=== PATIENT | female | born 1950 | race Caucasian/White ===

== ENCOUNTER → 2016-11-03 | Outpatient (CLI) | payer OTHER ==
[~2016-11-03] MED LIST: ASPIRIN 81MG TA81 MG PO; COREG25 MG PO; LISINOPRIL40 MG PO; MAXZIDE 50 MG-71 TAB PO; SULINDAC200 MG PO; SYNTHROID 0.1M0.1 MG PO; TRAMADOL 50MG T50 MG PO
--- NOTE | 2016-11-03 14:26 | RADIOLOGY REPORT PS360 ---
EXAM: CT LUNG LOW DOSE WO CONTRAST COMPARISON: None HISTORY: 65 year old female asymptomatic with greater than 35 pack-year smoking history ORDERING PHYSICIAN: Kameron Montejo MD PATIENT AGE: 65 years TECHNIQUE: The exam was performed on a GE Light Speed [address] scanner using 2.96 mGy CTDI. A low dose helical CT CHEST was performed on a multi-detector scanner The LDCT was performed in a facility that meets the criteria for the screening program. Data regarding this exam was submitted to ACR which is an approved registry. The order for this exam indicates that it came as a result of a lung cancer screening counseling shard decision-making visit that included all the elements required of such a visit including smoking cessation. The radiologist interpreting this exam meets the [facility] criteria for the LDCT lung cancer screening program. The exam is reported using the Lung-RADS classification scale and reported to the ACR registry. NOTE: THIS STUDY WAS PERFORMED FOR THE SPECIFIC PURPOSES OF LUNG CANCER SCREENING AND IS NOT AN ALTERNATIVE TO DIAGNOSTIC CHEST CT. RADIATION DOSE: CTDI vol(CT dose Index-volume) = 2.96mG DLP (Dose Length Product) = 122.63 mGcm FINDINGS: There are bilateral noncalcified pulmonary nodules measuring 2 to 3 mm. In addition, there is a 6 mm nodule in the right lung base medially with a central lucency and could represent a small cavitating nodule. Scattered fibrotic changes are present along with centrilobular emphysematous changes and bronchial thickening. An area of groundglass density is present involving the superior segment of the right lower lobe at 12 mm. There are coronary artery calcifications consistent with coronary artery disease. Upper abdominal images demonstrates a 6.6 x 5.2 cm mass involving the junction of the right and left hepatic lobe anteriorly. An additional 2 cm lesion involves the anterior segment of the right hepatic lobe. These findings are suspicious for malignancy. Dedicated CT of the abdomen and pelvis without and with IV contrast and with delayed hepatic imaging and oral contrast recommended. There is a left adrenal nodule also noted measuring 2.7 cm. IMPRESSION: 1. Hepatic masses suspicious for malignancy. Recommend follow-up 3 phase imaging of the liver. 2. Indeterminate 2.7 cm left adrenal nodule. Recommend follow-up without and with contrast 3. Lung rads category 3 probably benign. Consider 6 month follow-up if clinically appropriate 4. Groundglass opacity superior segment right lower lobe nonspecific and may be due to small area of pneumonia
--- NOTE | 2016-11-07 09:09 | RADIOLOGY REPORT PS360 ---
DIG MAMM-SCREEN DELVIN W/CAD CAD Screening ORDERING PHYSICIAN : Kameron Montejo MD PATIENT AGE: 65 years GENDER: Female COMPARISON: Previous mammograms 2005 have been purged INDICATION: Routine screening 65-year-old no hormones no new complaints noncontributory family history TECHNIQUE: Standard CC and MLO images were obtained. R2 CAD reviewed. FINDINGS: Scattered moderate fibroglandular elements. Mild/moderate density breast. CAD highlights no areas of concern RIGHT BREAST. On further inspection there is a small focal 5 mm low-density focus at lateral right breast seen on the cc views and less evident on MLO view I. 10 o'clock position. Nonspecific low-density area with with slight irregular margins may merely be asymmetric glandular tissue.. However Recommend CC and MLO spot views and ultrasound to further evaluate this small focus labeled a. Spot views should include the slightly more generous tissue mildly asymmetric glandular appearing tissue tissue immediate retroareolar region is labeled B LEFT BREAST: No focal areas of significant concern. IMPRESSION: . Baseline mammogram. Moderate density breast Right breast: Small 5 mm low-density focus lateral right breast, would benefit from spot views & ultrasound. BI-RADS CATEGORY: 2_Benign RECOMMENDED FOLLOWUP: 12M 12 MONTH FOLLOW-UP (A letter has been sent to the patient regarding results of the study.)
== END ==
LOC: RAD 08:25
DX: Z12.31 Encounter for screening mammogram for malignant neoplasm of breast (principal); Z87.891 Personal history of nicotine dependence; Z12.2 Encounter for screening for malignant neoplasm of respiratory organs
CPT/HCPCS: G0202; G0297

== ENCOUNTER 2016-11-25 07:46 | Day surgery (SDC) | payer OTHER ==
[~2016-11-25] VITALS: Ht 154.9 cm; Wt 49.0 kg
--- NOTE | 2016-11-25 09:22 | Operative Note ---
Endoscopy Report Date: 11/25/16 Preoperative diagnosis: Rectal bleeding, stool frequency Procedure Type of procedure: Flexible proctoscopy Indications: 66-year-old white female. Referred for colonoscopy for several month history of anemia, stool frequency, and gross rectal bleeding. This is been ongoing for about 7 months. Consent was obtained the patient was taken to same-day surgery endoscopy procedure room. She was positioned in a lateral decubitus position. Adequate intravenous sedation was achieved with anesthesia titration of propofol. Digital examination was performed which revealed circumferential fungating indurated anal mass. This was firm and consistent with carcinoma. Colonoscope was unable to be advanced through any lumen. Colonoscope was exchanged for open which was minimally advanced through the anal canal into the distal rectum where there was evidence of necrosis and friability consistent with circumferential carcinoma. It was unable to be advanced more than a few centimeters. Endoscope was withdrawn. Findings: Consistent with either advanced anal squamous carcinoma versus distal rectal carcinoma with high-grade partial obstruction. Recommendations: Contacted colorectal surgery at [facility] who is agreeable to see the patient tomorrow to initiate plan. at [phone]
[2016-11-25 10:03] VITALS: BP 173/70
== END 2016-11-25 09:50 | disposition home or self-care (01) ==
LOC: SDC 07:46
PROVIDERS: Surgery
PROC: 0DJD8ZZ Inspection of Lower Intestinal Tract, Via Natural or Artificial Opening Endoscopic (ICD-10-PCS; principal; 2016-11-25 08:30)
DX: D37.8 Neoplasm of uncertain behavior of other specified digestive organs (principal); K62.5 Hemorrhage of anus and rectum; D50.0 Iron deficiency anemia secondary to blood loss (chronic)

== ENCOUNTER → 2016-12-01 | Outpatient (CLI) | payer OTHER ==
[2016-12-01 08:10] LABS: BUN 14 mg/dL (7-18)
[2016-12-01 08:11] LABS: GFR (ESTIMATED) 72 ML/MIN (59-)
--- NOTE | 2016-12-02 10:33 | RADIOLOGY REPORT PS360 ---
MRI-ABD W/WO CLINICAL INDICATION: LIVER NODULE ON CT ORDERING PHYSICIAN: KYLE OVALLE PATIENT AGE: 66 years COMPARISON: CT scan of 11/10/2016 TECHNIQUE: Multiplanar multiecho sequences performed without and with contrast. FINDINGS: There are 2 liver lesions present which correspond to the abnormalities noted on the CT scan. A 7 x 4.4 cm mass involves the junction of the right left hepatic lobe. The mass is somewhat ill-defined hypointense on the T1-weighted images showing some peripheral hyperintensity on the T2-weighted images with central decreased T2 signal. A small amount of fluid is present along the intraaspect of the liver at this region. The mass shows some heterogeneous enhancement become somewhat more apparent on the delayed images. The enhancement pattern however does not have a typical appearance for a hemangioma. The peripheral enhancement is not as intense as one would expect for a hemangioma. This mass involves liver segment 4 and 8. There is an additional mass involving segment 7 measuring approximately 17 mm as seen on the CT scan. This lesion also shows some peripheral enhancement but not as intense as what one would expect for a hemangioma. Left adrenal nodule at 2 cm is noted showing some decrease in intensity in the out of phase images suggesting adenomatous involvement. No other significant findings are evident. IMPRESSION: 1. At least 2 liver lesions as above suspicious for neoplasm. No additional findings noted when compared to the CT scan. 2. Left adrenal nodule which may be due to an adenoma.
== END ==
LOC: RAD 07:54
PROVIDERS: Surgery
DX: D37.6 Neoplasm of uncertain behavior of liver, gallbladder and bile ducts (principal)
CPT/HCPCS: A9576

== ENCOUNTER 2017-01-06 20:51 | Inpatient (IN) | payer OTHER, MEDICARE ==
[~2017-01-06] VITALS: Ht 157.5 cm; Wt 48.6 kg
[2017-01-06 21:02] VITALS: BP 160/76
--- NOTE | 2017-01-06 21:10 | Emergency Room Report ---
History of Present Illness Time Seen by 2100 Presenting Problem in Triage Pt arrived:Walked Presenting Problem:PT C/O SHAKINESS, N/V, COUGH, AND WEAKNESS SINCE 1700 TODAY. PT ALSO STATES SHE HAS RECTAL CA AND HAS INCREASED BLEEDING FROM RECTUM. Onset of symptoms date/time:/ or onset unknown for:MEDICAL HX UNKNOWN Treatment Prior to Arrival: [employer] Provided by:LAYPERSON Sepsis Risk Assessment: Temp: 98 B/P: 160/76 MAP: 104 Pulse: 74 Resp: 20 Recent fever? N Clinical Suspician of Infection? N Mental Status: 1 - Regular (Normal Baseline) Sepsis Risk:Low Sepsis Risk Have you (or family members/close friends) recently traveled outside the [place]? N If Yes, where/when: Have you had exposure to infectious disease within the past month? N TB? Other? Specify: Source patient, RN notes reviewed, family, old records Exam Limitations no limitations Comment pt with metastatic rectal cancer with therapy to start next week and she dev cough and vomiting today with no fever - no hemoptysis Cardiac Chest Pain Chest pain indicative of cardiac No Timing/Duration this evening Severity moderate ALLERGIES Coded Allergies: Sulfa (Sulfonamide Antibiotics) (Intermediate, I-HIVES 11/10/16) penicillin V (11/10/16) Home Medications Reported Medications TRAZODONE HCL (Trazodone HCl) 50 MG PO QHS Carvedilol (Coreg 25MG) 25 MG PO QHS Lisinopril (Lisinopril 40MG) 40 MG PO QHS Levothyroxine Sodium (Synthroid 0.1MG) 0.1 MG PO DAILY Sulindac 200 MG PO DAILY History Medical History General CAD? No Angina: No MA: No Hypertension? Yes Hyperlipidemia? No CHF? No DVT? No PE? No COPD? No Asthma? No Anemia? No GERD? No Gastric ulcers? No GI Bleed? No Hernia? No Thyroid Problems? Yes Hypothyroidism? No CVA? No Seizures? No Diabetes? No Insulin Dependent: No Insulin Pump: No Home FSBS? No Renal Insuffiency? No End Stage Renal Disease? No UTI? No Stones? No BPH? No GB Disease: No Nephritic Syndrome? No Asplenia? No Hepatitis? No Sickle Cell Disease? No Arthritis? No Migraines? No Cataracts? No Glaucoma? No MRSA? No HIV? No TB? No Anxiety? No Depression? No Cancer? Yes Site: RECTAL CANCER, LIVER Immunization Hx DT/Tetanus > 10 YRS Flu NEVER Pneumonia NEVER Surgical Hx Previous Surgery?Y HYSTERECTOMY COLON RESECTION Family History Family Hx Diabetes Yes CAD Yes Hypertension Yes Hyperlipidemia Yes Cancer Yes TB Yes Social History Smoking Hx Smoker: Current Every Day Smoker Tobacco: Yes Type Cigarettes Packs/day < 1 Pack Are you/the child exposed to second-hand smoke: Yes Alcohol Alcohol: No Drugs none Review of Systems All Other Systems Reviewed and Negative Constitutional denies fever Eyes denies drainage ENT denies: ear discharge, epistaxis, throat pain. Respiratory cough, denies shortness of breath, denies wheezing Cardiovascular denies chest pain, denies palpitations, denies syncope Gastrointestinal see HPI, abdominal pain, denies diarrhea, nausea, vomiting, other Genitourinary denies: frequency, hesitancy. Musculoskeletal denies back pain, denies joint pain, denies joint swelling Skin denies rash Psychiatric/Neurological denies seizure Physical Exam Vital Signs Vital Signs Date Time Temp Pulse Resp B/P Pulse O2 O2 Flow FiO2 Ox Delivery Rate 01/06 2159 69 20 173/75 94 01/06 2102 98.0 74 20 160/76 98 - WBC >12,000 or <4,000 or 10% bands? 2 or more SIRS Criteria Met? B/P:173/75 MAP:104 Creatinine >2.0? UA output<0.5ml/kg/hr for 2 hrs? Platelet count >100,000? Lactate >2.0mmol/1? INR >1.2 or PTT > than 60 sec? Evidence of Organ Dysfunction? Provider documented clinical suspician of infection? N Sepsis Criteria Count: 1 Sepsis Risk: Low Sepsis Risk General Appearance no apparent distress Eye Exam - bilateral eye PERRL, bilateral eye EOMI Comment no icterus Ear, Nose, Throat dry mm Neck non-tender Respiratory Status No: respiratory distress. Lung Sounds bilateral: rhonchi. 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 No Results/Orders Laboratory Tests 01/06/17 2100: Lactic Acid 4.1 H 01/06/17 2100: Sodium 139, Potassium 2.8 *L, Chloride 100, Carbon Dioxide 26, BUN 14, Creatinine 1.1 H, Estimated Creat Clear 38 L, Estimated GFR (MDRD) 50 L, Glucose 112 H, Calcium 9.2, Total Bilirubin 0.3, AST 49 H, ALT 29, Alkaline Phosphatase 170 H, Total Protein 7.7, Albumin 3.5, Globulin 4.2 H, Albumin/ Globulin Ratio 0.8 L, WBC 8.2, RBC 5.42 H, Hgb 13.6, Hct 43.5, MCV 80.2 L, RDW 19.2 H, Plt Count 406, MPV 8.0, Gran % 93.3 H, Gran # 7.7, Total Counted Pending, Lymphocytes % 4.4 L, Monocytes % 1.6 L, Eosinophils % 0.6, Basophils % 0.2, Neutrophils Pending, Lymphocytes (Manual) Pending, Lymphocytes # 0.4 L, Monocytes # 0.1, Eosinophils # 0.1, Basophils # 0.0, Platelet Estimate Pending, PUBS MCHC 31.2 L, MCH 25.0 L Current Medication Orders Sig/Korin Start time Last Medication Dose Route Stop Time Status Admin Levofloxacin/Dextrose 150 ML ONCE ONE 01/06 2230 CKDr IV 01/06 2359 Potassium Chloride 40 MEQ ONCE 01/06 AC PO 01/06 223 Potassium Chloride/ 100 ML ONCE ONE 01/06 2230 AC Water IV 01/07 0029 Ondansetron HCl 4 MG ONCE ONE 01/06 2130 DC 01/06 IV 01/06 Sodium Chloride 1,000 ML .Q4H 01/06 2130 AC 01/06 IV 01/07 Sodium Chloride 10 ML PRN PRN 01/06 2130 AC IV 01/08 2120 Sodium Chloride 1,000 ML .STK-MED ONE 01/06 2123 DC IV Ondansetron HCl 4 MG 01/06 2115 CAN IV Sodium Chloride 10 ML PRN PRN 01/06 2115 AC IV 01/07 2114 Ondansetron HCl 0 .STK-MED ONE 01/06 2114 DC .ROUTE Orders Procedure Date/time Status Decision to admit 01/07 2216 Active LACTIC ACID FOLLOW UP 01/06 2155 Active CHEST(2 VIEWS-NOT PORTABLE) 01/06 2115 Active IV SALINE LOCK 01/06 2115 Active CULTURE, BLOOD 01/06 2115 Active URINALYSIS/COMPLETE 01/06 2115 Active LACTIC ACID 01/06 2115 Complete CBC WITH AUTO DIFF 01/06 2115 Active CHEM 12 PROFILE 01/06 2115 Complete DIFFERENTIAL-WBC 01/06 2100 Active XRAY/CT/US XRAY/CT/US XRAY chest XR interpretation by reviewed by me Xray Results abnormal (inc marking) Departure Departure Time of Disposition 2205 Disposition Still a Patient Clinical Impression Primary Impression: Bronchitis Secondary Impressions: Hypokalemia, Rectal cancer Condition STABLE Referrals Kameron Montejo MD (Family) discussed with dr benito ED Critical Care Critical Care No at 2226
[2017-01-06 21:31] LABS: HEMOGLOBIN 13.6 g/dL (12.2-16.2); LYMPH # 0.4 K/mm3 (0.7-4.5); LYMPH % 4.4 % (10-50.0)
[2017-01-06] MEDS ORDERED: TRAZODONE 50MG50 MG PO (21:32)
[2017-01-06 22:24] LABS: NEUTROPHILS 89 % (42-76)
[2017-01-06 23:20] VITALS: BP 164/64
[2017-01-06 23:24] VITALS: BP 161/66
[2017-01-07 04:22] VITALS: BP 137/71
--- NOTE | 2017-01-07 05:20 | RADIOLOGY REPORT PS360 ---
CHEST(2 VIEWS-NOT PORTABLE) HISTORY: COUGH, CONGESTION ORDERING PHYSICIAN: Kameron Montejo MD PATIENT AGE: 66 years COMPARISON: None available FINDINGS: The cardiomediastinal silhouette and pulmonary vascularity are within normal limits. No lobar consolidation or collapse. There is a faint nodular opacity overlying the right lung base laterally which may be due to a nipple shadow. This may be confirmed with nipple markers. There is coarsening of bronchovascular markings with hyperinflation suggesting COPD/asthma/bronchitis.7 mm nodular opacity noted in the right upper lobe overlying the second rib anteriorly and could be due to summation density or pulmonary nodule. No acute bony anomalies. IMPRESSION: 1. Suspect small airway disease 2. Nodular opacity right lower lobe which may be due to nipple shadow. Cannot exclude pulmonary nodule. Repeat exam with nipple markers may confirm. 3. Nonspecific nodular opacity right upper lobe which could be due to overlapping vessel or nodule. Follow-up recommended to confirm stability
[2017-01-07 07:06] LABS: LYMPH # 0.4 K/mm3 (0.7-4.5); LYMPH % 2.1 % (10-50.0)
[2017-01-07 07:27] LABS: HEMOGLOBIN 11.5 g/dL (12.2-16.2)
[2017-01-07 08:00] VITALS: BP 130/61
--- NOTE | 2017-01-07 08:22 | PHARMACY CLINIC NOTE ---
Patient Demographics Patient Demographics Admission date: 01/06/17 Date: 01/07/17 Time: 0821 Allergies Coded Allergies: Sulfa (Sulfonamide Antibiotics) (Intermediate, I-HIVES 11/10/16) penicillin V (11/10/16) HEIGHT- FT: 5 IN: 2.00 K.591 VTE General Information Labs: Laboratory Tests 01/07 01/06 0630 2100 Hematology Hgb (12.2 - 16.2 g/dL) 11.5 L 13.6 Hct (37.0 - 47.0 %) 37.0 43.5 Plt Count (142 - 424 K/mm3) 242 406 Disclaimer The following section includes nursing documentation that has been pulled in for pharmacy review. Patient's VTE score: 3 Patient's VTE Risk: LOW RISK Clinical trial participant? No VTE prophylaxis NQF [id number] VTE prophylaxis ordered? Yes Type of prophylaxis/treatment: GEMMA at 0821
[2017-01-07] MEDS ORDERED: LEVOTHYROXIN0.075 M1 PO (08:23)
[2017-01-07] MEDS ORDERED: AMLO5TAB PO (08:24)
[2017-01-07] MEDS ORDERED: LOPRESSOR 50 MG50 MG PO (08:31)
[2017-01-07] MEDS ORDERED: LISINOPRIL20 MG PO (08:33)
[2017-01-07] MEDS ORDERED: FEOSOL325 MG PO (08:35)
--- NOTE | 2017-01-07 08:36 | HISTORY AND PHYSICAL REPORT ---
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 ER with vomiting since dinner last PM. She developed chilling without a fever as well. She did have a cough yesterday but denies any other respiratory symptoms. Stools in the colostomy bag have been more loose. There has been no blood in the bag but she continues to pass blood from the rectum. She has seen oncology and dual treatment with radiation and chemotherapy are planned. She has an appt on 01/09/17. This AM she is feeling better. She did sleep some. Daughter is at bedside. Ms Nunes denies abdominal pain and SOB. She is not coughing. She has ongoing rectal pain and pink rectal discharge. The colostomy is functioning well without blood. She has ambulated to the bathroom. She has had a low grade fever and WBC's are elevated at 17,000 this AM. Past Medical History: Medical History: CAD? No Angina: No NE: No Hypertension? Yes Hyperlipidemia? Yes CHF? No DVT? No PE? No COPD? Yes Asthma? No Anemia? No GERD? No Gastric ulcers? No GI Bleed? No Hernia? No Thyroid Problems? Yes Hypothyroidism? Yes CVA? No Seizures? No Diabetes? No Insulin Dependent: No Insulin Pump: No Home FSBS? No Renal Insuffiency? No UTI? No Stones? No BPH? No GB Disease: No Nephritic Syndrome? No Asplenia? No Hepatitis? No Sickle Cell Disease? No Arthritis? No Migraines? No Cataracts? No Glaucoma? No MRSA? No HIV? No TB? No Anxiety? No Depression? No Cancer? Yes Site: RECTAL CANCER, LIVER Surgical history: Previous Surgery?Y HYSTERECTOMY ; colostomy created pretreatment ( with radiation and chemo for rectal cancer) Medications: Reported Medications TRAZODONE HCL (Trazodone HCl) 50-100 MG PO QHS Ferrous Sulfate (Feosol) 325 MG PO TID Levothyroxine Sodium (Levothyroxine 0.075MG) 0.075 MG PO DAILY #30 Amlodipine Besylate (Amlodipine) 5 MG PO DAILY #30 Metoprolol Tartrate (Lopressor) 50 MG PO BID #60 Lisinopril 20 MG PO DAILY #30 Discontinued Reported Medications Sulindac 200 MG PO DAILY Allergies: Coded Allergies: Sulfa (Sulfonamide Antibiotics) (Intermediate, I-HIVES 11/10/16) penicillin V (11/10/16) Family History: Family history: Postive for: CAD, DM, HTN, cancer. Social History: Smoking Hx Tobacco: Yes Smoker: Current Every Day Smoker Type: Cigarettes Packs/day: < 1 Pack Are you exposed to second hand Yes Alcohol: Alcohol: No Hx of Drug Use: Drug Use? No Review of Systems: ENT No: mouth pain, sore throat. Cardiovascular No: chest pain, edema, palpitations. Respiratory Positive for: non-productive (minimal). No: pneumonia, productive cough (sputum ), wheezing. GI Positive for: diarrhea, nausea, rectal pain, vomitting. No: abdominal pain, constipation, hematemeis, hematochezia, melena. (female) No: frequency, hematuria. Neurological Positive for: headache. No: confusion, dizziness, seizure, syncope. Musculoskeletal No: extremity pain, joint pain. Physical Exam: Vital signs: 1ST Vital Signs Result Date Time Pulse Ox 98 01/06 2102 B/P 160/76 01/06 2102 Temp 98.0 01/06 2102 Pulse 74 01/06 2102 Resp 20 01/06 2102 O2 Delivery ROOM AIR 01/06 2320 Exam: General appearance: alert, no acute distress Eyes: anicteric Neck: non-tender, full range of motion, supple Cardiovascular: regular rate & rhythm Respiratory: clear to auscultation (bilat anterior and posterior) ABD: non-distended, soft, bowel sounds present, colostomy, inflammed rectal masses Extremities: no peripheral edema, no calf tenderness Musculoskeletal: movesw all extremities Neuro: alert, oriented, speech clear Lab data: Labs: Laboratory Tests 01/07/17 0630: Sodium 135 L, Potassium 4.7, Chloride 101, Carbon Dioxide 25, BUN 11, Creatinine 1.0, Estimated Creat Clear 42 L, Estimated GFR (MDRD) 55 L, Glucose 114 H, Calcium 8.4 L, WBC 17.4 H, RBC 4.60, Hgb 11.5 L, Hct 37.0, MCV 80.4 L, RDW 19.1 H, Plt Count 242, MPV 8.1, Gran % 94.5 H, Gran # 16.4 H, Lymphocytes % 2.1 L, Monocytes % 3.1, Eosinophils % 0.1, Basophils % 0.1, Lymphocytes # 0.4 L, Monocytes # 0.5, Eosinophils # 0.0, Basophils # 0.0, PUBS MCHC 31.0 L, MCH 25.0 L 01/06/17 2100: Lactic Acid 4.1 H 01/06/17 2100: Sodium 139, Potassium 2.8 *L, Chloride 100, Carbon Dioxide 26, BUN 14, Creatinine 1.1 H, Estimated Creat Clear 38 L, Estimated GFR (MDRD) 50 L, Glucose 112 H, Calcium 9.2, Total Bilirubin 0.3, AST 49 H, ALT 29, Alkaline Phosphatase 170 H, Total Protein 7.7, Albumin 3.5, Globulin 4.2 H, Albumin/ Globulin Ratio 0.8 L, WBC 8.2, RBC 5.42 H, Hgb 13.6, Hct 43.5, MCV 80.2 L, RDW 19.2 H, Plt Count 406, MPV 8.0, Gran % 93.3 H, Gran # 7.7, Total Counted 100, Lymphocytes % 4.4 L, Monocytes % 1.6 L, Eosinophils % 0.6, Basophils % 0.2, Neutrophils 89 H, Lymphocytes (Manual) 9 L, Lymphocytes # 0.4 L, Monocytes # 0.1, Eosinophils # 0.1, Eosinophils # (Manual) 1, Basophils # 0.0, Basophils # (Manual) 1, Platelet Estimate NORMAL, Hypochromasia 1+, Poikilocytosis 1+, Anisocytosis 1+, PUBS MCHC 31.2 L, MCH 25.0 L Microbiology 01/06 2100 BLOOD: Anaerobic Blood Culture - RECD 01/06 2100 BLOOD: Aerobic Blood Culture - RECD 01/06 2100 BLOOD: Anaerobic Blood Culture - RECD 01/06 2100 BLOOD: Aerobic Blood Culture - RECD Radiology results: Results: 01/06/17 CXR IMPRESSION: 1. Suspect small airway disease 2. Nodular opacity right lower lobe which may be due to nipple shadow. Cannot exclude pulmonary nodule. Repeat exam with nipple markers may confirm. 3. Nonspecific nodular opacity right upper lobe which could be due to overlapping vessel or nodule. Follow-up recommended to confirm stability Diagnosis(es): 1. Rectal adenocarcinoma metastatic to liver 2. Hypokalemia 3. Bronchitis 4. Leukocytosis Plan: continue with Levaquin and IVF; repeat labs and CXR in AM; Blood cultures are pending (Tiana Rangel APRN) Diagnosis(es): 1. Rectal adenocarcinoma metastatic to liver 2. Hypokalemia 3. Bronchitis 4. Leukocytosis Plan: Patient seen and agree with above note. (Kameron Montejo MD) at 0858 at 0909
[2017-01-07 09:06] VITALS: BP 130/61
[2017-01-07 10:07] LABS: URINE BILIRUBIN - DIPSTICK NEGATIVE (NEG); URINE BLOOD 3+ (NEG)
--- NOTE | 2017-01-07 11:12 | ACUTE CARE PROGRESS NOTE (QUA) ---
Progress Notes Subjective Date 01/07/17 Time 1109 Objective Reviewed: Multiple blood cultures prelim positive for E. coli. Assessment/Plan Problem List 1. Rectal adenocarcinoma metastatic to liver 2. Hypokalemia 3. Bronchitis 4. Leukocytosis This inpt stay is expected to cross 2 MNs from start of care Yes Comments: Rocephin added empirically to Levaquin due to preliminary blood culture results. at 1111
[2017-01-07 16:00] VITALS: BP 177/61
[2017-01-07 19:27] VITALS: BP 139/84
[2017-01-07 21:09] VITALS: BP 139/84
[2017-01-08 04:13] VITALS: BP 138/61
[2017-01-08 08:00] VITALS: BP 186/73
--- NOTE | 2017-01-08 08:17 | ACUTE CARE PROGRESS NOTE (QUA) ---
Progress Notes Subjective Date 01/08/17 Time 0745 Note Pt resting quietly in bed with daughter at bedside. Pt reports no pain or SOB this am, continues with chronic cough. Pt tolerating diet well, however, she reports little appetite, notes BM x 1 early this morning. Objective Findings Last VS-Temp:98.1 B/P:138/61 Pulse:53 Resp:18 SaO2:95 ROOM AIR Last weight lbs:107 oz:2 K.591 Method:Bed Scales 01/06/17 Blood cultures: preliminary result: E.coli Exam General appearance: alert, awake, no acute distress Cardiovascular: regular rate & rhythm, normal peripheral pulses Respiratory: good air movement with right basilar wheeze ABD: non-distended, no rebound, soft, no tenderness, no guarding, no organomegaly, no palpable mass, bowel sounds present, colostomy bag in place LLQ Extremities: full range of motion, no peripheral edema, warm, no calf tenderness Neuro: alert, oriented, speech clear, no focal deficit Reviewed: medications, vital signs, lab results, radiology report, nursing notes Assessment/Plan Problem List 1. Rectal adenocarcinoma metastatic to liver 2. Hypokalemia 3. Bronchitis 4. Leukocytosis 5. E coli bacteremia Status: Acute Patient condition Improving Plan: CBC and CXR pending. CMP has improved. Will continue current care. Further per Dr. Montejo. This inpt stay is expected to cross 2 MNs from start of care Yes (SHANNON ALEJO APRN) Assessment/Plan Problem List 1. Rectal adenocarcinoma metastatic to liver 2. Hypokalemia 3. Bronchitis 4. Leukocytosis 5. E coli bacteremia Status: Acute Comments: Patient seen and agree with above note, awaiting cultures. (Kameron Montejo MD) at 0816 at 0906
[2017-01-08 08:34] LABS: HEMOGLOBIN 10.9 g/dL (12.2-16.2); LYMPH % 10.4 % (10-50.0)
[2017-01-08 08:45] VITALS: BP 138/61
--- NOTE | 2017-01-08 09:23 | RADIOLOGY REPORT PS360 ---
CHEST(2 VIEWS-NOT PORTABLE) HISTORY: leukocytosis ORDERING PHYSICIAN: Kameron Montejo MD PATIENT AGE: 66 years COMPARISON: 01/06/2017 FINDINGS: The cardiomediastinal silhouette and pulmonary vascularity are within normal limits. There is coarsening of bronchovascular markings as before consistent with COPD. No lobar consolidation or collapse and no significant change compared to the previous exam. Minimal blunting of the right CP angle as before. No acute bony abnormalities. IMPRESSION: COPD, no change with no acute finding
[2017-01-08 16:10] VITALS: BP 138/70
[2017-01-08 19:22] VITALS: BP 178/72
[2017-01-08 21:00] VITALS: BP 178/72
[2017-01-08 22:38] LABS: STOOL OCCULT BLOOD POSITIVE (NEG)
[2017-01-09 04:25] VITALS: BP 152/80
[2017-01-09 07:48] VITALS: BP 155/73
--- NOTE | 2017-01-09 08:16 | ACUTE CARE PROGRESS NOTE (QUA) ---
Progress Notes Subjective Date 01/09/17 Time 0745 Note Pt sitting up in bed watching tv with daughter at bedside. She reports feeling much better this morning. She denies any pain or SOB, notes her cough has improved. She tolerated breakfast well and has been up ad lawrence in her room without difficultly. She is voiding normally. She reports a stool sample was obtained after she noticed blood in her colostomy bag yesterday evening. Objective Findings Last VS-Temp:98.5 B/P:155/73 Pulse:59 Resp:20 SaO2:97 ROOM AIR Last weight lbs:107 oz:2 K.591 Method:Bed Scales 01/08/17 CXR: 1. COPD, no change with no acute finding. 01/06/17 Blood cultures: Final Result: E.coli - sensitive to Levaquin and Rocephin. 01/08/17 Stool Occult Blood: Positive. Exam General appearance: alert, awake, no acute distress Cardiovascular: regular rate & rhythm, normal peripheral pulses Respiratory: CTAB A&P ABD: non-distended, no rebound, soft, no tenderness, no guarding, no organomegaly, no palpable mass, bowel sounds present, LLQ colostomy Extremities: moves all, no peripheral edema, bilateral GEMMA hose in place Neuro: alert, oriented, speech clear, no focal deficit Reviewed: medications, vital signs, lab results, radiology report, nursing notes Assessment/Plan Problem List 1. Rectal adenocarcinoma metastatic to liver 2. Hypokalemia 3. Bronchitis 4. Leukocytosis 5. E coli bacteremia Status: Acute Patient condition Improving Plan: Will continue current care. Further per Dr. Montejo. This inpt stay is expected to cross 2 MNs from start of care Yes (SHANNON ALEJO APRN) Assessment/Plan Problem List 1. Rectal adenocarcinoma metastatic to liver 2. Hypokalemia 3. Bronchitis 4. Leukocytosis 5. E coli bacteremia Status: Acute 6. GI bleeding Comments: Overall patient is improving, no abd pain this AM, will monitor ostomy output for more blood, change from IV to PO Levaquin and saline lock IVF. (Kameron Montejo MD) at 0815 at 0848
[2017-01-09 09:00] VITALS: BP 155/73
[2017-01-09 16:16] VITALS: BP 156/72
[2017-01-09 19:44] VITALS: BP 204/76
[2017-01-09 20:30] VITALS: BP 204/76
[2017-01-10 04:16] VITALS: BP 123/58
[2017-01-10 07:27] LABS: LYMPH # 1.5 K/mm3 (0.7-4.5)
[2017-01-10 08:24] LABS: HEMOGLOBIN 12.7 g/dL (12.2-16.2)
[2017-01-10 08:30] VITALS: BP 188/76
--- NOTE | 2017-01-10 08:42 | ACUTE CARE PROGRESS NOTE (QUA) ---
Progress Notes Subjective Date 01/10/17 Time 0837 Note Patient feels well this morning, would like to go home. Objective Findings Laboratory Tests 01/10/17 0610: Sodium 137, Potassium 3.9, Chloride 99, Carbon Dioxide 28, BUN 12, Creatinine 0.8, Estimated Creat Clear 53, Estimated GFR (MDRD) 72, Glucose 88, Calcium 9.4, WBC 8.5, RBC 5.07, Hgb 12.7, Hct 39.7, MCV 78.4 L, RDW 18.8 H, Plt Count 259, MPV 8.2, Gran % 75.6, Gran # 6.4, Lymphocytes % 18.0, Monocytes % 3.7, Eosinophils % 2.3, Basophils % 0.6, Lymphocytes # 1.5, Monocytes # 0.3, Eosinophils # 0.2, Basophils # 0.1, PUBS MCHC 32.0, MCH 25.1 L Vital Signs Date Time Temp Pulse Resp B/P Pulse O2 O2 Flow FiO2 Ox Delivery Rate 01/10 0416 98.3 47 16 123/58 95 ROOM AIR 01/09 2030 97.6 52 16 204/76 97 01/09 1944 97.6 52 16 204/76 97 ROOM AIR 01/09 1616 98.2 50 16 156/72 98 ROOM AIR 01/09 0900 98.5 59 20 155/73 97 Last VS-Temp:98.3 B/P:123/58 Pulse:47 Resp:16 SaO2:95 ROOM AIR Last weight lbs:107 oz:2 K.591 Method:Bed Scales Exam General appearance: alert, awake, no acute distress Cardiovascular: regular rate & rhythm Respiratory: clear to auscultation ABD: normal bowel sounds, soft, no tenderness, no blood in ostomy bag Extremities: no peripheral edema Assessment/Plan Problem List 1. E coli bacteremia Status: Acute 2. Rectal adenocarcinoma metastatic to liver Status: Chronic 3. Hypokalemia Status: Resolved 4. Bronchitis Status: Resolved 5. Leukocytosis Status: Resolved 6. GI bleeding Status: Chronic This inpt stay is expected to cross 2 MNs from start of care Yes Comments: Patient has improved dramatically. Bacteremia was likely caused from a UTI, even though urine culture was normal. Sample was collected after antibiotics had been given. OK to discharge today on Levaquin and Ceftin. Patient to f/u in office in 6 days. at 0842
[2017-01-10] MEDS ORDERED: CEFUROXIME AXE500 MG PO (08:45)
[2017-01-10] MEDS ORDERED: LEVOFLOXACIN 5500 MG PO (08:45)
[2017-01-10] MEDS ORDERED: ZOFRAN 8MG TABLE8 MG PO (08:46)
[2017-01-10 10:04] VITALS: BP 188/76
--- NOTE | 2017-01-10 12:41 | DISCHARGE SUMMARY STANDARD ---
Discharge Summary (FCA2) Date of admission: 01/06/17 Date of discharge: 01/10/17 Problem List: 1. E coli bacteremia 2. Rectal adenocarcinoma metastatic to liver 3. Hypokalemia 4. Bronchitis 5. Leukocytosis 6. GI bleeding History of present illness: History of Present Illness: Ms Nunes is a 66 year old female with a history of recently diagnosed metastatic adenocarcinoma of the rectum with pretreatment colostomy creation, hypothyroidism, HTN, and tobacco usage. She presented to [facility] ER with vomiting since dinner the PM of admission. She developed chilling without a fever as well. She did have a cough but denied any other respiratory symptoms. Stools in the colostomy bag were more loose. There has been no blood in the bag but she continued to pass blood from the rectum. She had seen oncology and dual treatment with radiation and chemotherapy were planned with an appt on 01/09/17. This AM she is feeling better. She did sleep some. Daughter is at bedside. Ms Nunes denies abdominal pain and SOB. She is not coughing. She has ongoing rectal pain and pink rectal discharge. The colostomy is functioning well without blood. She has ambulated to the bathroom. She has had a low grade fever and WBC's are elevated at 17,000 this AM. Exam on admission: Vital signs: 1ST Vital Signs Result Date Time Pulse Ox 98 01/06 2102 B/P 160/76 01/06 2102 Temp 98.0 01/06 2102 Pulse 74 01/06 2102 Resp 20 01/06 2102 O2 Delivery ROOM AIR 01/06 2320 Exam: General appearance: alert, no acute distress Eyes: anicteric Neck: non-tender, full range of motion, supple Cardiovascular: regular rate & rhythm Respiratory: clear to auscultation (bilat anterior and posterior) ABD: non-distended, soft, bowel sounds present, colostomy, inflammed rectal masses Extremities: no peripheral edema, no calf tenderness Musculoskeletal: movesw all extremities Neuro: alert, oriented, speech clear Hospital Course: Am after admission she was feeling better. She received IVF and IV Levaquin. With positive blood cultures Rocephin was added. She had minimal cough. She had ongoing rectal pain and pink rectal discharge. The colostomy functioned well with some noted blood. She ambulated ad lawrence in her room. WBC's returned to normal. She did begin to eat better and improved dramatically. She denied abdominal pain. Positive blood cultures with E coli were sensitive to both ABX. Bacteremia was felt to be due to UTI even though Urine culture was negative . Patient had already received ABX prior to obtaining the UA. On 01/10/17 she was discharged to home. Laboratory data this visit: 01/07/17 0630: Sodium 135 L, Potassium 4.7, Chloride 101, Carbon Dioxide 25, BUN 11, Creatinine 1.0, Estimated Creat Clear 42 L, Estimated GFR (MDRD) 55 L, Glucose 114 H, Calcium 8.4 L, WBC 17.4 H, RBC 4.60, Hgb 11.5 L, Hct 37.0, MCV 80.4 L, RDW 19.1 H, Plt Count 242, MPV 8.1, Gran % 94.5 H, Gran # 16.4 H, Lymphocytes % 2.1 L, Monocytes % 3.1, Eosinophils % 0.1, Basophils % 0.1, Lymphocytes # 0.4 L, Monocytes # 0.5, Eosinophils # 0.0, Basophils # 0.0, PUBS MCHC 31.0 L, MCH 25.0 L 01/06/17 2100: Lactic Acid 4.1 H 01/06/17 2100: Sodium 139, Potassium 2.8 *L, Chloride 100, Carbon Dioxide 26, BUN 14, Creatinine 1.1 H, Estimated Creat Clear 38 L, Estimated GFR (MDRD) 50 L, Glucose 112 H, Calcium 9.2, Total Bilirubin 0.3, AST 49 H, ALT 29, Alkaline Phosphatase 170 H, Total Protein 7.7, Albumin 3.5, Globulin 4.2 H, Albumin/ Globulin Ratio 0.8 L, WBC 8.2, RBC 5.42 H, Hgb 13.6, Hct 43.5, MCV 80.2 L, RDW 19.2 H, Plt Count 406, MPV 8.0, Gran % 93.3 H, Gran # 7.7, Total Counted 100, Lymphocytes % 4.4 L, Monocytes % 1.6 L, Eosinophils % 0.6, Basophils % 0.2, Neutrophils 89 H, Lymphocytes (Manual) 9 L, Lymphocytes # 0.4 L, Monocytes # 0.1, Eosinophils # 0.1, Eosinophils # (Manual) 1, Basophils # 0.0, Basophils # (Manual) 1, Platelet Estimate NORMAL, Hypochromasia 1+, Poikilocytosis 1+, Anisocytosis 1+, PUBS MCHC 31.2 L, MCH 25.0 L 01/06/17 Blood cultures: Final Result: E.coli - sensitive to Levaquin and Rocephin. 01/08/17 Stool Occult Blood: Positive. 01/10/17 0610: Sodium 137, Potassium 3.9, Chloride 99, Carbon Dioxide 28, BUN 12, Creatinine 0.8, Estimated Creat Clear 53, Estimated GFR (MDRD) 72, Glucose 88, Calcium 9.4, WBC 8.5, RBC 5.07, Hgb 12.7, Hct 39.7, MCV 78.4 L, RDW 18.8 H, Plt Count 259, MPV 8.2, Gran % 75.6, Gran # 6.4, Lymphocytes % 18.0, Monocytes % 3.7, Eosinophils % 2.3, Basophils % 0.6, Lymphocytes # 1.5, Monocytes # 0.3, Eosinophils # 0.2, Basophils # 0.1, PUBS MCHC 32.0, MCH 25.1 L Vital Signs Imagin01/06/17 CXR IMPRESSION: 1. Suspect small airway disease 2. Nodular opacity right lower lobe which may be due to nipple shadow. Cannot exclude pulmonary nodule. Repeat exam with nipple markers may confirm. 3. Nonspecific nodular opacity right upper lobe which could be due to overlapping vessel or nodule. Follow-up recommended to confirm stability CXR 01/08/17 IMPRESSION: COPD, no change with no acute finding Discharge medications: Continue taking these medications: TRAZODONE HCL (Trazodone HCl) 50 MG TABLET 50-100 MILLIGRAM ORAL AT BEDTIME NIGHTLY Levothyroxine Sodium (Levothyroxine 0.075MG) 75 MCG TABLET 0.075 MILLIGRAM ORAL DAILY Qty = 30 Amlodipine Besylate (Amlodipine) 5 MG TABLET 5 MILLIGRAM ORAL DAILY Qty = 30 Metoprolol Tartrate (Lopressor) 50 MG TABLET 50 MILLIGRAM ORAL TWICE A DAY Qty = 60 Lisinopril (Lisinopril) 20 MG TABLET 20 MILLIGRAM ORAL DAILY Qty = 30 Ferrous Sulfate (Feosol) 325 MG TABLET 325 MILLIGRAM ORAL THREE TIMES A DAY Start taking the following new medications: LEVOFLOXACIN (Levofloxacin) 500 MG TABLET 500 MILLIGRAM ORAL AT BEDTIME NIGHTLY Qty = 7 No Refills Cefuroxime Axetil (Cefuroxime) 500 MG TABLET 500 MILLIGRAM ORAL TWICE A DAY Qty = 14 No Refills Ondansetron Hcl (Zofran 8MG Tab) 8 MG TABLET 8 MILLIGRAM ORAL EVERY 8 HOURS NEEDED as needed for N/V Qty = 9 Refills = 2 Disposition: 01/10/17 patient was discharged to home in stable and satisfactory condition. Meds as per reconciliation sheet and to include Ceftin and Levaquin. She was to continue with the same diet and activity level. F/U with Dr. Montejo in 6 days. at 1241
--- OUTSIDE RECORDS SUMMARY | 2017-02-13 09:36 | External Medical Summary Rpt ---
Author Author , WAYNE BLACK Address Unknown Phone [email or web address] [facility] Immunization Name Date Rout CVX Reac Dose Comm Prov Is Faci e tion ent ider Refu lity Give sed n Infl 12-0 Intr 135 0.5 Hist [facility] No [facility] uenz 6-20 amus mL oric ART5 ART5 a, 16 cula al 91 91 High r Info rmat Dose ion - Sour ce Unsp ecif ied PPV2 06-1 Intr 33 0.5 Hist [facility] No [facility] 3 0-20 amus mL oric ART5 ART5 16 cula al 91 91 r Info rmat ion - Sour ce Unsp ecif ied Tdap 04-2 Intr 115 0.5 Hist [facility] No [facility] , 7-20 amus mL oric ART5 ART5 Adso 16 cula al 91 91 rbed r Info rmat ion - Sour ce Unsp ecif ied
--- OUTSIDE RECORDS SUMMARY | 2017-02-13 09:36 | External Medical Summary Rpt ---
Author Author , JONAH Organization JONAH Address Unknown Phone [email or web address] Purpose Continuity of Care Document - 11-10-2016 through 2016 Problems Code Diagnosis DOS Provider Status C20 MALIGNANT NEOPLASM OF RECTUM E87.6 HYPOKALEMIA J40 BRONCHITIS, NOT SPECIFIED ACUTE OR CHRONIC R53.83 OTHER FATIGUE Results Labs Lab Lab Date Result Refere Interp Status Commen Order Detail nces retati t Range on Bacteria identified in Urine by Culture (01-30-2017 15:07) Bacteri MODERAT complet a 017 E ed identif 15:07 AMOUNT ied in OF Urine YEAST by ISOLATE Culture D. PLEASE CONTACT LAB IF ID Bacteri REQUIRE complet a 017 D. LAB ed identif 15:07 WILL ied in HOLD Urine YEAST by FOR 5 Culture DAYS. Bacteri Yeast complet a 017 ed identif 15:07 ied in Urine by Culture Hemoglobin.gastrointestinal [Presence] in Stool (01-08-2017 22:23) Hemoglo POSITIV NEG complet bin.gas 017 E ed trointe 22:23 stinal [Presen ce] in Stool --1st specime n Differential panel, method unspecified - (01-06-2017 21:00) Anisocy 1+ complet tosis 017 ed [Presen 21:00 ce] in Blood Hypochr 1+ complet omia 017 ed [Presen 21:00 ce] in Blood LYMPH 9 % 10% - Low complet 017 50% ed 21:00 Platele NORMAL complet ts 017 ed [Presen 21:00 ce] in Blood by Light microsc opy [place] 1+ complet cytosis 017 ed 21:00 [Presen ce] in Blood by Light microsc opy CEA SerPl-mCnc (12-12-2016 14:10) CEA 245.4 complet SerPl-m 017 ng/mL ed Cnc 14:10
--- OUTSIDE RECORDS SUMMARY | 2017-02-13 09:36 | External Medical Summary Rpt ---
Author Author , JONAH Organization JONAH Address Unknown Phone [email or web address] Purpose Continuity of Care Document - 11-10-2016 [...]
--- OUTSIDE RECORDS SUMMARY | 2017-02-13 09:36 | External Medical Summary Rpt ---
Author Author [employer] Organization [employer] Address Unknown Phone Unavailable Purpose Continuity of Care Document - through 2016
--- OUTSIDE RECORDS SUMMARY | 2017-02-13 09:36 | External Medical Summary Rpt ---
Author Author , WAYNE BLACK Address Unknown Phone [email or web address] Immunization Name Date Rout CVX Reac Dose [...]
--- OUTSIDE RECORDS SUMMARY | 2017-02-13 09:37 | External Medical Summary Rpt ---
Author Author [facility] Connolly, [employer] [facility] [employer] Address Unknown Phone Unavailable Results Bacteria identified in Urine by Culture Observa Value Referen Units Interpr Notes Date tion ce etation Range Bacteri MODERAT No No No No Sep 22 a E informa informa informa informa 2017 identif AMOUNT tion in tion in tion in tion in 3:07 PM ied in OF source source source source Urine YEAST data data data data by ISOLATE Culture D. PLEASE CONTACT LAB IF ID Bacteri REQUIRE No No No No Sep 22 a D. LAB informa informa informa informa 2017 identif WILL tion in tion in tion in tion in 3:07 PM ied in HOLD source source source source Urine YEAST data data data data by FOR 5 Culture DAYS. Bacteri Yeast No No No No Sep 22 a informa informa informa informa 2016 identif tion in tion in tion in tion in 3:07 PM ied in source source source source Urine data data data data by Culture Comprehensive metabolic 2000 panel in Serum or Plasma Observa Value Referen Units Interpr Notes Date tion ce etation Range Albumin/G 1.1 - 1.8 No Low No Sep 22 lobulin informati informati 2017 3:07 [Mass on in on in PM ratio] in source source Serum or data data Plasma Albumin 3.4 - 5.0 gm/dL Normal No Sep 22 [Mass/vol informati 2017 3:07 ume] in on in PM Serum or source Plasma data Alkaline 46 - 116 U/L High No Sep 22 phosphata informati 2017 3:07 se on in PM [Enzymati source c data activity/ volume] in Serum or Plasma Bilirubin 0.2 - 1.0 mg/dL Normal No Sep 22 .total informati 2017 3:07 [Mass/vol on in PM ume] in source Serum or data Plasma Urea 7 - 18 mg/dL Normal No Sep 22 nitrogen informati 2017 3:07 [Mass/vol on in PM ume] in source Serum or data Plasma Calcium 8.5 - mg/dL Normal No Sep 22 [Mass/vol 10.1 informati 2017 3:07 ume] in on in PM Serum or source Plasma data Chloride 98 - 107 mmoL/L Normal No Sep 22 [Moles/vo informati 2016 3:07 lume] in on in PM Serum or source Plasma data Carbon 21.0 - mmoL/L Normal No Sep 22 dioxide, 32.0 informati 2016 3:07 total on in PM [Moles/vo source lume] in data Serum or Plasma Creatinin 0.55 - mg/dL Normal No Sep 22 e 1.02 informati 2017 3:07 [Mass/vol on in PM ume] in source Serum or data Plasma Estimated 59- ML/MIN No REFERENCE Sep 22 informati RANGE: 2017 3:07 glomerula on in >60 PM r source ML/MIN/1. filtratio data 73 SQUARE n rate METERSIf (GF this patient is -A merican, then multiply theresult by 1.210. Globulin 1.3 - 3.2 gm/dL High No Sep 22 [Mass/vol informati 2016 3:07 ume] in on in PM Serum source data Glucose 74 - 106 mg/dL Normal No Sep 22 [Mass/vol informati 2016 3:07 ume] in on in PM Serum or source Plasma data Potassium 3.5 - 5.1 mmoL/L Normal No Sep 22 informati 2016 3:07 [Moles/vo on in PM lume] in source Serum or data Plasma Sodium 136 - 145 mmoL/L Low No Sep 22 [Moles/vo informati 2016 3:07 lume] in on in PM Serum or source Plasma data Aspartate 15 - 37 U/L Normal No Sep 22 informati 2017 3:07 aminotran on in PM sferase source [Enzymati data c activity/ volume] in Serum or Plasma Alanine 12 - 78 U/L Normal No Sep 22 aminotran informati 2016 3:07 sferase on in PM [Enzymati source c data activity/ volume] in Serum or Plasma Protein 6.4 - 8.2 gm/dL Normal No Sep 22 [Mass/vol informati 2017 3:07 ume] in on in PM Serum or source Plasma data CBC W Auto Differential panel in Blood Observa Value Referen Units Interpr Notes Date tion ce etation Range Basophils 0 - 0.2 K/MM3 Normal No Sep 22 informati 2016 3:07 [#/volume on in PM ] in source Blood by data Automated count Basophils 0.1 - 2.0 % Normal No Sep 22 /100 informati 2016 3:07 leukocyte on in PM s in source Blood by data Automated count Eosinophi 0.0 - 0.4 K/mm3 Normal No Sep 22 ls informati 2016 3:07 [#/volume on in PM ] in source Blood by data Automated count Eosinophi 0.1 - % Normal No Sep 22 ls/100 12.0 informati 2016 3:07 leukocyte on in PM s in source Blood by data Automated count Granulocy 1.8 - 7.8 K/mm3 Normal No Sep 22 stefan informati 2016 3:07 [#/volume on in PM ] in source Blood by data Automated count Granulocy 37.0 - % Normal No Sep 22 stefan/100 80.0 informati 2016 3:07 leukocyte on in PM s in source Blood by data Automated count Hematocri 37.0 - % Normal No Sep 22 t [Volume 47.0 informati 2016 3:07 on in PM Fraction] source of Blood data Hemoglobi 12.2 - g/dL Normal No Sep 22 n 16.2 informati 2016 3:07 [Mass/vol on in PM ume] in source Blood data Lymphocyt 0.7 - 4.5 K/mm3 Normal No Sep 22 es informati 2017 3:07 [#/volume on in PM ] in source Unspecifi data ed specimen by Automated count Lymphocyt 10 - 50.0 % Normal No Sep 22 es informati 2016 3:07 [#/volume on in PM ] in source Unspecifi data ed specimen by Automated count Erythrocy 27 - 31.2 pg Low No Sep 22 te mean informati 2017 3:07 corpuscul on in PM ar source hemoglobi data n [Entitic mass] Erythrocy 31.8 - g/dl Low No Sep 22 te mean 35.4 informati 2016 3:07 corpuscul on in PM ar source hemoglobi data n concentra tion [Mass/vol ume] by Automated count Erythrocy 82.2 - fl Normal No Sep 22 te mean 97.8 informati 2016 3:07 corpuscul on in PM ar volume source [Entitic data volume] by Automated count Monocytes 0.1 - 1.0 K/mm3 Normal No Sep 22 informati 2016 3:07 [#/volume on in PM ] in source Blood by data Automated count Monocytes 1.7 - 9.3 % Normal No Sep 22 /100 informati 2016 3:07 leukocyte on in PM s in source Blood by data Automated count Platelet 7.4 - fl Normal No Sep 22 mean 10.4 informati 2016 3:07 volume on in PM [Entitic source volume] data in Blood by Automated count Platelets 142 - 424 K/mm3 Normal No Sep 22 informati 2016 3:07 [#/volume on in PM ] in source Blood data Erythrocy 4.2 - 5.4 M/mm3 Normal No Sep 22 stefan informati 2016 3:07 [#/volume on in PM ] in source Amniotic data fluid Erythrocy 11.5 - % Normal No Sep 22 te 17.5 informati 2016 3:07 distribut on in PM ion width source [Entitic data volume] by Automated count Leukocyte 4.8 - K/MM3 Normal No Sep 22 s 10.8 informati 2016 3:07 [#/volume on in PM ] in source Blood data CBC W Auto Differential panel in Blood Observa Value Referen Units Interpr Notes Date tion ce etation Range Basophils 0 - 0.2 K/MM3 Normal No Sep 2 informati 2017 6:10 [#/volume on in AM ] in source Blood by data Automated count Basophils 0.1 - 2.0 % Normal No Sep 2 /100 informati 2017 6:10 leukocyte on in AM s in source Blood by data Automated count Eosinophi 0.0 - 0.4 K/mm3 Normal No Sep 2 ls informati 2016 6:10 [#/volume on in AM ] in source Blood by data Automated count Eosinophi 0.1 - % Normal No Sep 2 ls/100 12.0 informati 2016 6:10 leukocyte on in AM s in source Blood by data Automated count Granulocy 1.8 - 7.8 K/mm3 Normal No Sep 2 stefan informati 2016 6:10 [#/volume on in AM ] in source Blood by data Automated count Granulocy 37.0 - % Normal No Sep 2 stefan/100 80.0 informati 2016 6:10 leukocyte on in AM s in source Blood by data Automated count Hematocri 37.0 - % Normal No Sep 2 t [Volume 47.0 informati 2016 6:10 on in AM Fraction] source of Blood data Hemoglobi 12.2 - g/dL No No Sep 2 n 16.2 informati informati 2017 6:10 [Mass/vol on in on in AM ume] in source source Blood data data Lymphocyt 0.7 - 4.5 K/mm3 Normal No Sep 2 es informati 2017 6:10 [#/volume on in AM ] in source Unspecifi data ed specimen by Automated count Lymphocyt 10 - 50.0 % Normal No Sep 2 es informati 2017 6:10 [#/volume on in AM ] in source Unspecifi data ed specimen by Automated count Erythrocy 27 - 31.2 pg Low No Sep 2 te mean informati 2017 6:10 corpuscul on in AM ar source hemoglobi data n [Entitic mass] Erythrocy 31.8 - g/dl Normal No Sep 2 te mean 35.4 informati 2017 6:10 corpuscul on in AM ar source hemoglobi data n concentra tion [Mass/vol ume] by Automated count Erythrocy 82.2 - fl Low No Sep 2 te mean 97.8 informati 2017 6:10 corpuscul on in AM ar volume source [Entitic data volume] by Automated count Monocytes 0.1 - 1.0 K/mm3 Normal No Sep 2 informati 2017 6:10 [#/volume on in AM ] in source Blood by data Automated count Monocytes 1.7 - 9.3 % Normal No Sep 2 /100 informati 2017 6:10 leukocyte on in AM s in source Blood by data Automated count Platelet 7.4 - fl Normal No Sep 2 mean 10.4 informati 2017 6:10 volume on in AM [Entitic source volume] data in Blood by Automated count Platelets 142 - 424 K/mm3 Normal No Sep 2 informati 2017 6:10 [#/volume on in AM ] in source Blood data Erythrocy 4.2 - 5.4 M/mm3 Normal No Sep 2 stefan informati 2017 6:10 [#/volume on in AM ] in source Amniotic data fluid Erythrocy 11.5 - % High No Sep 2 te 17.5 informati 2017 6:10 distribut on in AM ion width source [Entitic data volume] by Automated count Leukocyte 4.8 - K/MM3 Normal No Sep 2 s 10.8 informati 2017 6:10 [#/volume on in AM ] in source Blood data Basic metabolic panel in Blood Observa Value Referen Units Interpr Notes Date tion ce etation Range Urea 7 - 18 mg/dL Normal No Sep 2 nitrogen informati 2017 6:10 [Mass/vol on in AM ume] in source Serum or data Plasma Calcium 8.5 - mg/dL Normal No Sep 2 [Mass/vol 10.1 informati 2017 6:10 ume] in on in AM Serum or source Plasma data Chloride 98 - 107 mmoL/L Normal No Sep 2 [Moles/vo informati 2017 6:10 lume] in on in AM Serum or source Plasma data Carbon 21.0 - mmoL/L Normal No Sep 2 dioxide, 32.0 informati 2017 6:10 total on in AM [Moles/vo source lume] in data Serum or Plasma Creatinin 0.55 - mg/dL Normal No Sep 2 e 1.02 informati 2017 6:10 [Mass/vol on in AM ume] in source Serum or data Plasma Creatinin 50 - 200 ML/MIN Normal No Sep 2 e renal informati 2017 6:10 clearance on in AM source predicted data by Cockcroft -Gault formula Estimated 59- ML/MIN No REFERENCE Sep 2 informati RANGE: 2017 6:10 glomerula on in >60 AM r source ML/MIN/1. filtratio data 73 SQUARE n rate METERSIf (GF this patient is -A merican, then multiply theresult by 1.210. Glucose 74 - 106 mg/dL Normal No Sep 2 [Mass/vol informati 2017 6:10 ume] in on in AM Serum or source Plasma data Potassium 3.5 - 5.1 mmoL/L Normal No Sep 2 informati 2017 6:10 [Moles/vo on in AM lume] in source Serum or data Plasma Sodium 136 - 145 mmoL/L Normal No Sep 2 [Moles/vo informati 2017 6:10 lume] in on in AM Serum or source Plasma data Hemoglobin.gastrointestinal [Presence] in Stool Observa Value Referen Units Interpr Notes Date tion ce etation Range Collected by nurse? Y Hold specimen in OE? N Hemoglo POSITIV NEG No No No Jan 08 bin.gas E informa informa informa 2017 trointe tion in tion in tion in 10:23 stinal source source source PM [Presen data data data ce] in Stool --1st specime n Glucose [Mass/volume] in Capillary blood by Glucometer Observa Value Referen Units Interpr Notes Date tion ce etation Range Glucose 70 - 110 mg/dl High No Jan 08 [Mass/vol informati 2016 ume] in on in 11:15 AM Capillary source blood by data Glucomete r CBC W Auto Differential panel in Blood Observa Value Referen Units Interpr Notes Date tion ce etation Range Basophils 0 - 0.2 K/MM3 Normal No Jan 08 informati 2016 6:08 [#/volume on in AM ] in source Blood by data Automated count Basophils 0.1 - 2.0 % Normal No Jan 08 /100 informati 2017 6:08 leukocyte on in AM s in source Blood by data Automated count Eosinophi 0.0 - 0.4 K/mm3 Normal No Jan 08 ls informati 2017 6:08 [#/volume on in AM ] in source Blood by data Automated count Eosinophi 0.1 - % Normal No Jan 08 ls/100 12.0 informati 2016 6:08 leukocyte on in AM s in source Blood by data Automated count Granulocy 1.8 - 7.8 K/mm3 Normal No Jan 08 stefan informati 2017 6:08 [#/volume on in AM ] in source Blood by data Automated count Granulocy 37.0 - % High No Jan 08 stefan/100 80.0 informati 2017 6:08 leukocyte on in AM s in source Blood by data Automated count Hematocri 37.0 - % Low No Jan 08 t [Volume 47.0 informati 2016 6:08 on in AM Fraction] source of Blood data Hemoglobi 12.2 - g/dL Low No Jan 08 n 16.2 informati 2017 6:08 [Mass/vol on in AM ume] in source Blood data Lymphocyt 0.7 - 4.5 K/mm3 Normal No Jan 08 es informati 2016 6:08 [#/volume on in AM ] in source Unspecifi data ed specimen by Automated count Lymphocyt 10 - 50.0 % Normal No Jan 08 es informati 2016 6:08 [#/volume on in AM ] in source Unspecifi data ed specimen by Automated count Erythrocy 27 - 31.2 pg Low No Jan 08 te mean informati 2016 6:08 corpuscul on in AM ar source hemoglobi data n [Entitic mass] Erythrocy 31.8 - g/dl Low No Jan 08 te mean 35.4 informati 2017 6:08 corpuscul on in AM ar source hemoglobi data n concentra tion [Mass/vol ume] by Automated count Erythrocy 82.2 - fl Low No Jan 08 te mean 97.8 informati 2017 6:08 corpuscul on in AM ar volume source [Entitic data volume] by Automated count Monocytes 0.1 - 1.0 K/mm3 Normal No Jan 08 informati 2017 6:08 [#/volume on in AM ] in source Blood by data Automated count Monocytes 1.7 - 9.3 % Normal No Jan 08 /100 informati 2017 6:08 leukocyte on in AM s in source Blood by data Automated count Platelet 7.4 - fl Normal No Jan 08 mean 10.4 informati 2017 6:08 volume on in AM [Entitic source volume] data in Blood by Automated count Platelets 142 - 424 K/mm3 Normal No Jan 08 informati 2017 6:08 [#/volume on in AM ] in source Blood data Erythrocy 4.2 - 5.4 M/mm3 Normal No Jan 08 stefan informati 2017 6:08 [#/volume on in AM ] in source Amniotic data fluid Erythrocy 11.5 - % High No Jan 08 te 17.5 informati 2017 6:08 distribut on in AM ion width source [Entitic data volume] by Automated count Leukocyte 4.8 - K/MM3 No Jan 08 s 10.8 informati informati 2017 6:08 [#/volume on in on in AM ] in source source Blood data data Comprehensive metabolic 2000 panel in Serum or Plasma Observa Value Referen Units Interpr Notes Date tion ce etation Range Albumin/G 1.1 - 1.8 No Low No Jan 08 lobulin informati informati 2017 6:08 [Mass on in on in AM ratio] in source source Serum or data data Plasma Albumin 3.4 - 5.0 gm/dL Low No Jan 08 [Mass/vol informati 2017 6:08 ume] in on in AM Serum or source Plasma data Alkaline 46 - 116 U/L Normal No Jan 08 phosphata informati 2017 6:08 se on in AM [Enzymati source c data activity/ volume] in Serum or Plasma Bilirubin 0.2 - 1.0 mg/dL Low No Jan 08 .total informati 2017 6:08 [Mass/vol on in AM ume] in source Serum or data Plasma Urea 7 - 18 mg/dL Normal No Jan 08 nitrogen informati 2017 6:08 [Mass/vol on in AM ume] in source Serum or data Plasma Calcium 8.5 - mg/dL Normal No Jan 08 [Mass/vol 10.1 informati 2017 6:08 ume] in on in AM Serum or source Plasma data Chloride 98 - 107 mmoL/L Normal No Jan 08 [Moles/vo informati 2017 6:08 lume] in on in AM Serum or source Plasma data Carbon 21.0 - mmoL/L Normal No Jan 08 dioxide, 32.0 informati 2017 6:08 total on in AM [Moles/vo source lume] in data Serum or Plasma Creatinin 0.55 - mg/dL No No Jan 08 e 1.02 informati informati 2017 6:08 [Mass/vol on in on in AM ume] in source source Serum or data data Plasma Creatinin 50 - 200 ML/MIN No No Jan 08 e renal informati informati 2017 6:08 clearance on in on in AM source source predicted data data by Cockcroft -Gault formula Estimated 59- ML/MIN No REFERENCE Jan 08 informati RANGE: 2017 6:08 glomerula on in >60 AM r source ML/MIN/1. filtratio data 73 SQUARE n rate METERSIf (GF this patient is -A merican, then multiply theresult by 1.210. Globulin 1.3 - 3.2 gm/dL High No Jan 08 [Mass/vol informati 2017 6:08 ume] in on in AM Serum source data Glucose 74 - 106 mg/dL Normal No Jan 08 [Mass/vol informati 2016 6:08 ume] in on in AM Serum or source Plasma data Potassium 3.5 - 5.1 mmoL/L Normal No Jan 08 informati 2016 6:08 [Moles/vo on in AM lume] in source Serum or data Plasma Sodium 136 - 145 mmoL/L Normal No Jan 08 [Moles/vo informati 2017 6:08 lume] in on in AM Serum or source Plasma data Aspartate 15 - 37 U/L No No Jan 08 informati informati 2017 6:08 aminotran on in on in AM sferase source source [Enzymati data data c activity/ volume] in Serum or Plasma Alanine 12 - 78 U/L Normal No Jan 08 aminotran informati 2017 6:08 sferase on in AM [Enzymati source c data activity/ volume] in Serum or Plasma Protein 6.4 - 8.2 gm/dL Low No Jan 08 [Mass/vol informati 2017 6:08 ume] in on in AM Serum or source Plasma data CBC W Auto Differential panel in Blood Observa Value Referen Units Interpr Notes Date tion ce etation Range Basophils 0 - 0.2 K/MM3 Normal No Jan 07 informati 2017 6:30 [#/volume on in AM ] in source Blood by data Automated count Basophils 0.1 - 2.0 % Normal No Jan 07 /100 informati 2017 6:30 leukocyte on in AM s in source Blood by data Automated count Eosinophi 0.0 - 0.4 K/mm3 Normal No Jan 07 ls informati 2017 6:30 [#/volume on in AM ] in source Blood by data Automated count Eosinophi 0.1 - % Normal No Jan 07 ls/100 12.0 informati 2017 6:30 leukocyte on in AM s in source Blood by data Automated count Granulocy 1.8 - 7.8 K/mm3 High No Jan 07 stefan informati 2017 6:30 [#/volume on in AM ] in source Blood by data Automated count Granulocy 37.0 - % High No Jan 07 stefan/100 80.0 informati 2017 6:30 leukocyte on in AM s in source Blood by data Automated count Hematocri 37.0 - % Normal No Jan 07 t [Volume 47.0 informati 2017 6:30 on in AM Fraction] source of Blood data Hemoglobi 12.2 - g/dL Low Jan 07 n 16.2 informati 2017 6:30 [Mass/vol on in AM ume] in source Blood data Lymphocyt 0.7 - 4.5 K/mm3 Low No Jan 07 es informati 2017 6:30 [#/volume on in AM ] in source Unspecifi data ed specimen by Automated count Lymphocyt 10 - 50.0 % Low No Jan 07 es informati 2017 6:30 [#/volume on in AM ] in source Unspecifi data ed specimen by Automated count Erythrocy 27 - 31.2 pg Low No Jan 07 te mean informati 2017 6:30 corpuscul on in AM ar source hemoglobi data n [Entitic mass] Erythrocy 31.8 - g/dl Low No Jan 07 te mean 35.4 informati 2017 6:30 corpuscul on in AM ar source hemoglobi data n concentra tion [Mass/vol ume] by Automated count Erythrocy 82.2 - fl Low No Jan 07 te mean 97.8 informati 2016 6:30 corpuscul on in AM ar volume source [Entitic data volume] by Automated count Monocytes 0.1 - 1.0 K/mm3 Normal No Jan 07 informati 2016 6:30 [#/volume on in AM ] in source Blood by data Automated count Monocytes 1.7 - 9.3 % Normal No Jan 07 /100 informati 2017 6:30 leukocyte on in AM s in source Blood by data Automated count Platelet 7.4 - fl Normal No Jan 07 mean 10.4 informati 2017 6:30 volume on in AM [Entitic source volume] data in Blood by Automated count Platelets 142 - 424 K/mm3 No No Jan 07 informati informati 2017 6:30 [#/volume on in on in AM ] in source source Blood data data Erythrocy 4.2 - 5.4 M/mm3 Normal No Jan 07 stefan informati 2017 6:30 [#/volume on in AM ] in source Amniotic data fluid Erythrocy 11.5 - % High No Jan 07 te 17.5 informati 2017 6:30 distribut on in AM ion width source [Entitic data volume] by Automated count Leukocyte 4.8 - K/MM3 High No Jan 07 s 10.8 informati 2016 6:30 [#/volume on in AM ] in source Blood data Basic metabolic panel in Blood Observa Value Referen Units Interpr Notes Date tion ce etation Range Urea 7 - 18 mg/dL Normal No Jan 07 nitrogen informati 2017 6:30 [Mass/vol on in AM ume] in source Serum or data Plasma Calcium 8.5 - mg/dL Low No Jan 07 [Mass/vol 10.1 informati 2017 6:30 ume] in on in AM Serum or source Plasma data Chloride 98 - 107 mmoL/L Normal No Jan 07 [Moles/vo informati 2017 6:30 lume] in on in AM Serum or source Plasma data Carbon 21.0 - mmoL/L Normal No Jan 07 dioxide, 32.0 informati 2017 6:30 total on in AM [Moles/vo source lume] in data Serum or Plasma Creatinin 0.55 - mg/dL Normal No Jan 07 e 1.02 informati 2016 6:30 [Mass/vol on in AM ume] in source Serum or data Plasma Creatinin 50 - 200 ML/MIN Low No Jan 07 e renal informati 2016 6:30 clearance on in AM source predicted data by Cockcroft -Gault formula Estimated 59- ML/MIN Low REFERENCE Jan 07 RANGE: 2016 6:30 glomerula >60 AM r ML/MIN/1. filtratio 73 SQUARE n rate METERSIf (GF this patient is -A merican, then multiply theresult by 1.210. Glucose 74 - 106 mg/dL High No Jan 07 [Mass/vol informati 2016 6:30 ume] in on in AM Serum or source Plasma data Potassium 3.5 - 5.1 mmoL/L Normal No Jan 07 informati 2016 6:30 [Moles/vo on in AM lume] in source Serum or data Plasma Sodium 136 - 145 mmoL/L Low No Jan 07 [Moles/vo ati 2016 6:30 lume] in on in AM Serum or source Plasma data CBC W Auto Differential panel in Blood Observa Value Referen Units Interpr Notes Date tion ce etation Range Basophils 0 - 0.2 K/MM3 Normal No Jan 06 informati 2016 9:00 [#/volume on in PM ] in source Blood by data Automated count Basophils 0.1 - 2.0 % Normal No Jan 06 informati 2016 9:00 leukocyte on in PM s in source Blood by data Automated count Eosinophi 0.0 - 0.4 K/mm3 Normal No Jan 06 ls informati 2016 9:00 [#/volume on in PM ] in source Blood by data Automated count Eosinophi 0.1 - % Normal No Jan 06 ls/100 12.0 informati 2016 9:00 leukocyte on in PM s in source Blood by data Automated count Granulocy 1.8 - 7.8 K/mm3 Normal No Jan 06 stefan informati 2016 9:00 [#/volume on in PM ] in source Blood by data Automated count Granulocy 37.0 - % High No Jan 06 stefan/100 80.0 informati 2016 9:00 leukocyte on in PM s in source Blood by data Automated count Hematocri 37.0 - % Normal No Jan 06 t [Volume 47.0 informati 2017 9:00 on in PM Fraction] source of Blood data Hemoglobi 12.2 - g/dL Normal No Jan 06 n 16.2 informati 2016 9:00 [Mass/vol on in PM ume] in source Blood data Lymphocyt 0.7 - 4.5 K/mm3 Low No Jan 06 es informati 2016 9:00 [#/volume on in PM ] in source Unspecifi data ed specimen by Automated count Lymphocyt 10 - 50.0 % Low No Jan 06 es informati 2016 9:00 [#/volume on in PM ] in source Unspecifi data ed specimen by Automated count Erythrocy 27 - 31.2 pg Low No Jan 06 te mean informati 2016 9:00 corpuscul on in PM ar source hemoglobi data n [Entitic mass] Erythrocy 31.8 - g/dl Low No Jan 06 te mean 35.4 informati 2016 9:00 corpuscul on in PM ar source hemoglobi data n concentra tion [Mass/vol ume] by Automated count Erythrocy 82.2 - fl Low No Jan 06 te mean 97.8 informati 2016 9:00 corpuscul on in PM ar volume source [Entitic data volume] by Automated count Monocytes 0.1 - 1.0 K/mm3 Normal No Jan 06 informati 2017 9:00 [#/volume on in PM ] in source Blood by data Automated count Monocytes 1.7 - 9.3 % Low No Jan 06 /100 informati 2017 9:00 leukocyte on in PM s in source Blood by data Automated count Platelet 7.4 - fl Normal Jan 06 mean 10.4 informati 2016 9:00 volume on in PM [Entitic source volume] data in Blood by Automated count Platelets 142 - 424 K/mm3 No No Jan 06 informati informati 2017 9:00 [#/volume on in on in PM ] in source source Blood data data Erythrocy 4.2 - 5.4 M/mm3 High No Jan 06 stefan informati 2016 9:00 [#/volume on in PM ] in source Amniotic data fluid Erythrocy 11.5 - % High No Jan 06 te 17.5 informati 2016 9:00 distribut on in PM ion width source [Entitic data volume] by Automated count Leukocyte 4.8 - K/MM3 Normal No Jan 06 s 10.8 informati 2016 9:00 [#/volume on in PM ] in source Blood data Differential panel, method unspecified - Observa Value Referen Units Interpr Notes Date ti ce etation Range Anisocy 1+ No No No No Jan 06 tosis informa informa informa informa 2016 [Presen tion in tion in tion in tion in 9:00 PM ce] in source source source source Blood data data data data Basophils 0 - 1 % Normal No Jan 06 informati 2016 9:00 leukocyte on in PM s in source Blood by data Automated count Eosinophi 0 - 3 % Normal No Jan 06 ls/100 ati 2016 9:00 leukocyte on in PM s in source Blood by data Manual count Hypochr 1+ No No No No Jan 06 omia informa informa informa informa 2016 [Presen tion in tion in tion in tion in 9:00 PM ce] in source source source source Blood data data data data LYMPH 9 10 - 50 % Low No Jan 062016 tion in 9:00 PM source data Platele NORMAL No No No No Jan 06 ts informa informa informa informa 2016 [Presen tion in tion in tion in tion in 9:00 PM ce] in source source source source Blood data data data data by Light microsc opy Poikilo 1+ No No No No Jan 06 cytosis informa informa informa informa 2016 tion in tion in tion in tion in 9:00 PM [Presen source source source source ce] in data data data data Blood by Light microsc opy Neutrophi 42 - 76 % High Jan 06 ls ati 2016 9:00 [#/volume on in PM ] in source Blood by data Automated count Cells No #CELLS No No Jan 06 Counted informati informati informati 2016 9:00 Total [#] on in on in on in PM in Blood source source source data data data Lactate [Moles/volume] in Blood Observa Value Referen Units Interpr Notes Date ti ce etation Range Lactate 0.4 - 2.0 mmol/L High Jan 06 [Moles/vo 2016 9:00 lume] in CRITICAL PM Blood RESULTS RESU LTS CALLED TO: [facility] 01/06/17 2154 Loli Howard ndaAn elevated Lactic Acid is suggestiv e of sepsis and shouldbe repeated within 6 hours of initial testing. Comprehensive metabolic 2000 panel in Serum or Plasma Observa Value Referen Units Interpr Notes Date tion ce etation Range Albumin/G 1.1 - 1.8 No Low No Jan 06 lobulin informati informati 2017 9:00 [Mass on in on in PM ratio] in source source Serum or data data Plasma Albumin 3.4 - 5.0 gm/dL Normal No Jan 06 [Mass/vol informati 2017 9:00 ume] in on in PM Serum or source Plasma data Alkaline 46 - 116 U/L High No Jan 06 phosphata informati 2017 9:00 se on in PM [Enzymati source c data activity/ volume] in Serum or Plasma Bilirubin 0.2 - 1.0 mg/dL Normal No Jan 06 .total informati 2016 9:00 [Mass/vol on in PM ume] in source Serum or data Plasma Urea 7 - 18 mg/dL Normal No Jan 06 nitrogen informati 2017 9:00 [Mass/vol on in PM ume] in source Serum or data Plasma Calcium 8.5 - mg/dL Normal No Jan 06 [Mass/vol 10.1 informati 2017 9:00 ume] in on in PM Serum or source Plasma data Chloride 98 - 107 mmoL/L Normal No Jan 06 [Moles/vo informati 2017 9:00 lume] in on in PM Serum or source Plasma data Carbon 21.0 - mmoL/L Normal No Jan 06 dioxide, 32.0 informati 2017 9:00 total on in PM [Moles/vo source lume] in data Serum or Plasma Creatinin 0.55 - mg/dL High No Jan 06 e 1.02 informati 2017 9:00 [Mass/vol on in PM ume] in source Serum or data Plasma Creatinin 50 - 200 ML/MIN Low No Jan 06 e renal informati 2017 9:00 clearance on in PM source predicted data by Cockcroft -Gault formula Estimated 59- ML/MIN Low REFERENCE Jan 06 RANGE: 2017 9:00 glomerula >60 PM r ML/MIN/1. filtratio 73 SQUARE n rate METERSIf (GF this patient is -A merican, then multiply theresult by 1.210. Globulin 1.3 - 3.2 gm/dL High No Jan 06 [Mass/vol informati 2017 9:00 ume] in on in PM Serum source data Glucose 74 - 106 mg/dL High No Jan 06 [Mass/vol informati 2016 9:00 ume] in on in PM Serum or source Plasma data Potassium 3.5 - 5.1 mmoL/L Low alert Jan 06 2016 9:00 [Moles/vo CRITICAL PM lume] in RESULTS Serum or Plasma RESU LTS CALLED TO: [facility] 01/06/17 2145 Lee,[place] nda Sodium 136 - 145 mmoL/L Normal No Jan 06 [Moles/vo informati 2016 9:00 lume] in on in PM Serum or source Plasma data Aspartate 15 - 37 U/L High No Jan 06 informati 2016 9:00 aminotran on in PM sferase source [Enzymati data c activity/ volume] in Serum or Plasma Alanine 12 - 78 U/L Normal No Jan 06 aminotran informati 2016 9:00 sferase on in PM [Enzymati source c data activity/ volume] in Serum or Plasma Protein 6.4 - 8.2 gm/dL Normal No Jan 06 [Mass/vol informati 2017 9:00 ume] in on in PM Serum or source Plasma data Lactate [Moles/volume] in Serum or Plasma Observa Value Referen Units Interpr Notes Date tion ce etation Range Lactate 0.4 - 2.0 MMOL/L High An Jan 06 [Moles/vo elevated 2016 1:00 lume] in Lactic AM Serum or Acid is Plasma suggestiv e of sepsis and shouldbe repeated within 6 hours of initial testing. Basic metabolic panel in Blood Observa Value Referen Units Interpr Notes Date tion ce etation Range Urea 7 - 18 mg/dL Normal No Dec 01 nitrogen informati 2016 7:55 [Mass/vol on in AM ume] in source Serum or data Plasma Calcium 8.5 - mg/dL Normal No Dec 01 [Mass/vol 10.1 informati 2016 7:55 ume] in on in AM Serum or source Plasma data Chloride 98 - 107 mmoL/L Normal No Dec 01 [Moles/vo informati 2016 7:55 lume] in on in AM Serum or source Plasma data Carbon 21.0 - mmoL/L Normal No Dec 01 dioxide, 32.0 informati 2016 7:55 total on in AM [Moles/vo source lume] in data Serum or Plasma Creatinin 0.55 - mg/dL Normal No Dec 01 e 1.02 informati 2016 7:55 [Mass/vol on in AM ume] in source Serum or data Plasma Estimated 59- ML/MIN No REFERENCE Dec 01 informati RANGE: 2016 7:55 glomerula on in >60 AM r source ML/MIN/1. filtratio data 73 SQUARE n rate METERSIf (GF this patient is -A merican, then multiply theresult by 1.210. Glucose 74 - 106 mg/dL Normal No Dec 01 [Mass/vol informati 2016 7:55 ume] in on in AM Serum or source Plasma data Potassium 3.5 - 5.1 mmoL/L Normal No Dec 01 informati 2016 7:55 [Moles/vo on in AM lume] in source Serum or data Plasma Sodium 136 - 145 mmoL/L Normal No Dec 01 [Moles/vo informati 2016 7:55 lume] in on in AM Serum or source Plasma data Basic metabolic panel in Blood Observa Value Referen Units Interpr Notes Date tion ce etation Range Urea 7 - 18 mg/dL Normal No Dec 01 nitrogen informati 2016 7:55 [Mass/vol on in AM ume] in source Serum or data Plasma Calcium 8.5 - mg/dL Normal No Dec 01 [Mass/vol 10.1 informati 2016 7:55 ume] in on in AM Serum or source Plasma data Chloride 98 - 107 mmoL/L Normal No Dec 01 [Moles/vo informati 2016 7:55 lume] in on in AM Serum or source Plasma data Carbon 21.0 - mmoL/L Normal No Dec 01 dioxide, 32.0 informati 2016 7:55 total on in AM [Moles/vo source lume] in data Serum or Plasma Creatinin 0.55 - mg/dL Normal No Dec 01 e 1.02 informati 2016 7:55 [Mass/vol on in AM ume] in source Serum or data Plasma Estimated 59- ML/MIN No REFERENCE Dec 01 informati RANGE: 2016 7:55 glomerula on in >60 AM r source ML/MIN/1. filtratio data 73 SQUARE n rate METERSIf (GF this patient is -A merican, then multiply theresult by 1.210. Glucose 74 - 106 mg/dL Normal No Dec 01 [Mass/vol informati 2016 7:55 ume] in on in AM Serum or source Plasma data Potassium 3.5 - 5.1 mmoL/L Normal No Dec 01 informati 2016 7:55 [Moles/vo on in AM lume] in source Serum or data Plasma Sodium 136 - 145 mmoL/L Normal No Dec 01 [Moles/vo informati 2016 7:55 lume] in on in AM Serum or source Plasma data Urea nitrogen [Mass/volume] in Serum or Plasma Observa Value Referen Units Interpr Notes Date tion ce etation Range Urea 7 - 18 mg/dL Normal No Nov 10 nitrogen informati 2016 8:31 [Mass/vol on in AM ume] in source Serum or data Plasma CREATININE Observa Value Referen Units Interpr Notes Date tion ce etation Range Creatinin 0.55 - mg/dL Normal No Nov 10 e 1.02 informati 2016 8:31 [Mass/vol on in AM ume] in source Serum or data Plasma Estimated 59- ML/MIN No REFERENCE Nov 10 informati RANGE: 2017 8:31 glomerula on in >60 AM r source ML/MIN/1. filtratio data 73 SQUARE n rate METERSIf (GF this patient is -A merican, then multiply theresult by 1.210.
--- OUTSIDE RECORDS SUMMARY | 2017-02-13 09:37 | External Medical Summary Rpt ---
[...] PM Blood RESULTS RESU LTS CALLED TO: [facility] 01/06/17 2154 Loli Howard ndaAn elevated Lactic [...] RESU LTS CALLED TO: [facility] 01/06/17 2145 Lee,[place] nda Sodium 136 - 145 mmoL/L Normal [...]
--- OUTSIDE RECORDS SUMMARY | 2017-02-13 09:42 | External Medical Summary Rpt ---
Author Author , JONAH Organization JONAH Address Unknown Phone [email or web address] Purpose Continuity of Care Document - 11-10-2016 [...]
--- OUTSIDE RECORDS SUMMARY | 2017-02-13 09:42 | External Medical Summary Rpt ---
Author Author , JONAH Organization JONAH Address Unknown Phone [email or web address] Purpose Continuity of Care Document - 11-10-2016 [...]
--- OUTSIDE RECORDS SUMMARY | 2017-02-13 09:43 | External Medical Summary Rpt ---
Author Author , WAYNE LBACK Address Unknown Phone [email or web address] Immunization Name Date Rout CVX Reac Dose [...]
--- OUTSIDE RECORDS SUMMARY | 2017-02-13 09:43 | External Medical Summary Rpt ---
Author Author , WAYNE BLACK Address Unknown Phone [email or web address] Immunization Name Date Rout CVX Reac Dose [...]
--- OUTSIDE RECORDS SUMMARY | 2017-02-13 09:44 | External Medical Summary Rpt ---
[...] PM Blood RESULTS RESU LTS CALLED TO: [facility] 01/06/17 2154 Loli Howard ndaAn elevated Lactic [...] RESU LTS CALLED TO: [facility] 01/06/17 2145 Lee,[place] nda Sodium 136 - 145 mmoL/L Normal [...]
--- OUTSIDE RECORDS SUMMARY | 2017-02-13 09:44 | External Medical Summary Rpt ---
[...] PM Blood RESULTS RESU LTS CALLED TO: [facility] 01/06/17 2154 Loli Howard ndaAn elevated Lactic [...] RESU LTS CALLED TO: [facility] 01/06/17 2145 Lee,[place] nda Sodium 136 - 145 mmoL/L Normal [...]
== END 2017-01-10 10:31 | disposition home or self-care (01) | DRG 872 ==
LOC: ER 20:51 → 2ND 22:27
PROVIDERS: Emergency Medicine; Family Medicine
DX: R78.81 Bacteremia (principal); C78.7 Secondary malignant neoplasm of liver and intrahepatic bile duct; C19 Malignant neoplasm of rectosigmoid junction; I10 Essential (primary) hypertension; Z72.0 Tobacco use; E87.6 Hypokalemia; Z93.3 Colostomy status
CPT/HCPCS: G0328; J2405

== ENCOUNTER → 2017-01-30 | Outpatient (CLI) | payer OTHER, MEDICARE ==
[~2017-01-30] MED LIST changes: +AMLO5TAB PO; +CEFUROXIME AXE500 MG PO; +FEOSOL325 MG PO; +LEVOFLOXACIN 5500 MG PO; +LEVOTHYROXIN0.075 M1 PO; +LISINOPRIL20 MG PO; +LOPRESSOR 50 MG50 MG PO; +TRAZODONE 50MG50 MG PO; +ZOFRAN 8MG TABLE8 MG PO
[2017-01-30 15:27] LABS: URINE BILIRUBIN - DIPSTICK NEGATIVE (NEG); URINE BLOOD NEGATIVE (NEG)
[2017-01-30 15:32] LABS: HEMOGLOBIN 12.8 g/dL (12.2-16.2); LYMPH % 18.3 % (10-50.0)
[2017-01-30 15:41] LABS: URINE SQUAMOUS CELLS OCC #/hpf (0-5)
[2017-01-30 18:27] LABS: BUN 14 mg/dL (7-18)
[2017-01-30 18:28] LABS: GFR (ESTIMATED) 100 ML/MIN (59-)
== END ==
LOC: LAB 15:05
PROVIDERS: Nurse Practitioner
DX: C18.9 Malignant neoplasm of colon, unspecified (principal)

== ENCOUNTER → 2017-03-16 | Outpatient (CLI) | payer OTHER, MEDICARE ==
[2017-03-16 15:50] LABS: HEMOGLOBIN 13.5 g/dL (12.2-16.2); LYMPH # 0.6 K/mm3 (0.7-4.5); LYMPH % 7.7 % (10-50.0)
[2017-03-16 18:58] LABS: BUN 10 mg/dL (7-18)
[2017-03-16 18:59] LABS: GFR (ESTIMATED) 84 ML/MIN (59-)
== END ==
LOC: LAB 14:52
PROVIDERS: Surgery
DX: C20 Malignant neoplasm of rectum (principal); Z01.812 Encounter for preprocedural laboratory examination

== ENCOUNTER → 2017-03-18 | Outpatient (CLI) | payer OTHER, MEDICARE ==
--- NOTE | 2017-03-19 07:24 | RADIOLOGY REPORT PS360 ---
CT CHEST W/ CONTRAST INDICATION: Rectal cancer follow-up RECTAL CA ORDERING PHYSICIAN: Cresencio Winston MD PATIENT AGE: 66 years COMPARISON: 11/03/2016 TECHNIQUE: Axial images are obtained with IV contrast. Sagittal and coronal reformatted images are reviewed as well. FINDINGS: No mediastinal or hilar mass or adenopathy is evident. Normal heart size without evidence of pericardial thickening. Mild centrilobular emphysematous change/obstructive chronic bronchitis. Patchy groundglass density was again noted involving the superior segment of the right lower lobe unchanged 3 mm nodular opacity right upper lobe inferiorly unchanged. Calcified granuloma right lung base laterally. There is a 6 mm nodular opacity in the right lower lobe medially with a central lucency. This is unchanged. Mild bronchial thickening noted. 3 mm nodular opacity left upper lobe anteriorly unchanged. There are some minimal nodularity in right upper lobe medially in the subpleural region 5 mm unchanged. No new nodules evident. No effusions or suspicious masses. Multiple hepatic lesions are present as described in the abdomen report. No acute bony anomalies are evident. No obvious bony destructive lesions. IMPRESSION: 1. Overall stable CT appearance of the chest with no convincing evidence of pulmonary metastasis. 2. Multiple stable small pulmonary nodular densities. A small nodule with central lucency is present measuring 6 mm in the right lower lobe but is unchanged. This nodule is indeterminate and continued 6 month follow-up is recommended. 3. Centrilobular emphysematous change/obstructive chronic bronchitis
--- NOTE | 2017-03-19 09:31 | RADIOLOGY REPORT PS360 ---
CT ABD PELVIS W/ CONTRAST CLINICAL INDICATION: Follow-up rectal cancer and hepatic metastasis RECTAL CA ORDERING PHYSICIAN: Cresencio Winston MD PATIENT AGE: 66 years COMPARISON: 11/10/2016 TECHNIQUE: Axial images obtained with sagittal and coronal reformats. PROCEDURE: Oral Contrast: Redicat IV Contrast: 75 mL is Isovue-370 performed in conjunction with the chest CT. FINDINGS: There are multiple hepatic masses the largest involving the anterior segment of the right hepatic lobe and medial segment of the left hepatic lobe measuring up to 8.2 x 6.9 cm consistent with metastatic disease. The largest lesion appears slightly more prominent than when compared to the previous exam. The second largest lesion is in the posterior segment of the right hepatic lobe and measures 2.7 cm previously measuring 2 cm. There may be a new smaller lesion in the medial segment of the left hepatic lobe at 5 mm. The left adrenal gland is enlarged as previously described 3 x 1.7 cm not significantly changed. The spleen and pancreas and right adrenal gland and kidneys are unremarkable aside from a lower pole renal cyst on the right. There has been interval colonic surgery with a left lower quadrant diverting colostomy.. No abdominal or pelvic adenopathy or focal inflammatory change. No destructive bony lesions. There is some mild sclerosis of left SI joint. IMPRESSION: 1. Multiple hepatic lesions once again noted consistent with metastatic disease. The lesions do appear slightly larger compared to 11/10/2016 with suggestion of a new small lesion in the left hepatic lobe. 2. Interval creation of a left lower quadrant diverting colostomy. 3. No change in enlarged left adrenal gland.
== END ==
LOC: RAD 09:36
DX: C20 Malignant neoplasm of rectum (principal)

== ENCOUNTER 2017-03-25 08:11 | Day surgery (SDC) | payer OTHER, MEDICARE ==
[~2017-03-25] VITALS: Ht 154.9 cm; Wt 48.1 kg
--- NOTE | 2017-03-25 09:52 | Operative Note ---
Surgeon/Diagnoses Surgeon/Field Technical Support Consultant(s) Date of procedure: 03/25/17 Surgeon: Arnold Hamm Diagnoses Pre-op diagnosis: Need for semipermanent intravenous access Post-op diagnosis Same Procedure Procedure Procedure: Placement of 8 Maur[place]ian open ended central venous catheter and LEFT subclavian vein with implantable reservoir port using fluoroscopy for guidance (PowerPort placement) Indications: MIKE DOTSON is a 66 year-old Female with a history of metastatic rectal cancer. Plan is for initiation of chemotherapy. She was sent for surgical consultation for port placement. Findings: Normal anatomy Procedure Description: Consent was obtained and patient was taken the operating room. She was positioned in a supine position. Gen. anesthesia was induced. Neck and upper chest were prepped and draped in the standard surgical fashion. She was positioned in Trendelenburg position. Local anesthetic was infiltrated inferior to the LEFT clavicle. Needle was inserted manipulating the needle inferior to the clavicle. After several passes of the needle there was good return of venous flow. Guidewire was inserted. Fluoroscopy was used to confirm good position of the guidewire without pneumothorax. Small incision was made at the guidewire insertion site and subcutaneous tissues were dilated. Dilator and guidewire were removed leaving the breakaway sheath in place. A Mauritanian open-ended catheter was then inserted through the sheath and the breakaway sheath was removed. Once again fluoroscopy was used to confirm good position and the catheter was manipulated so the tip was near the atrial caval junction. The catheter was tunneled subcutaneously to exit the skin at a separate site where incision was made for creation of subcu pocket. Electrocautery was used to create inferior subcutaneous pocket. Once again fluoroscopy was used to confirm appropriate position of the catheter. Catheter was cut to the appropriate length and secured to the implantable subcutaneous reservoir port. Port was then secured into the subcu days pocket with a 2-0 Vicryl sutures. Initially there was not good return of blood. However upon flushing there was good venous return and it flushed without difficulty. Subdermal tissues were closed with running 2-0 Vicryl. Skin was closed with 4-0 Monocryl or running subcuticular fashion. At the completion of the procedure the port was accessed with Amaya needle infusion tubing. It flushed and aspirated without difficulty. It was flushed with heparinized saline. The port remained accessed for pending chemotherapy infusion. Clean dry sterile dressings were applied. EBL (ml): 25 Anesthesia: gEN. Implants: 8 Mauritanian single lumen open-ended PowerPort Disposition Disposition: To PACU at 0923
--- NOTE | 2017-03-25 09:54 | Anesthesia Record ---
Anesthesia Record Part II Discharge time: 1020 Destination: Same day surgery PACU nurse assessment review? Yes Patient is: Awake, Stable Anesthesia complications? No at 0959
--- NOTE | 2017-03-25 09:54 | Anesthesia Record ---
Anesthesia Record Part I Total IV fluids: 1200 EBL (ml): 0 Urine Output: 0 B/P: 145/73 % SaO2: 99 Pulse: 72 Resps: 12 Temp: 98.5 Patient is: Awake, Stable Stable to PACU at: 0950 at 0909
--- NOTE | 2017-03-25 10:43 | RADIOLOGY REPORT PS360 ---
FLUORO GUIDE FOR CV ACCESS HISTORY: Port-A-Cath placement PORT-A-CATH ORDERING PHYSICIAN: Arnodl Hamm MD PATIENT AGE: 66 years Fluoroscopy time: 17 seconds COMPARISON: None FINDINGS: Single image submitted from the C-arm shows a left subclavian Port-A-Cath in place with the tip in the region superior vena cava. IMPRESSION: Status post Port-A-Cath placement with fluoroscopy
--- NOTE | 2017-03-25 12:43 | RADIOLOGY REPORT PS360 ---
CHEST-PORTABLE Ordering physician: Arnold Hamm MD Age: 66 years Female INDICATION: chest [id number] PLACEMENT 03/25/17, CHEMO 03/26/17 PROCEDURE: CHEST-PORTABLE COMPARISON Prior chest film 01/08/2017. Also recent CT chest from March 2017 FINDINGS: Port-A-Cath now in place entering from the left subclavian with tip at the SVC just above the right atria. Satisfactory position. No pneumothorax. No pleural effusion. Underlying COPD but lungs appear stable and clear with no acute findings. Heart, khris and mediastinal structures are stable & unremarkable. clinical research monitor leads are in place.Chest wall unremarkable... IMPRESSION ----- Port-A-Cath in place entering from left & in satisfactory position. Underlying COPD./Emphysema Lungs appear clear with no acute findings. No pneumothorax.
--- NOTE | 2017-03-25 12:43 | RADIOLOGY REPORT PS360 ---
CHEST-PORTABLE Ordering physician: Arnold Hamm MD Age: 66 years Female INDICATION: chest [id number] PLACEMENT 03/25/17, CHEMO 03/26/17 PROCEDURE: CHEST-PORTABLE COMPARISON Prior chest film 01/08/2017. Also recent CT chest from March 2017 FINDINGS: Port-A-Cath now in place entering from the left subclavian with tip at the SVC just above the right atria. Satisfactory position. No pneumothorax. No pleural effusion. Underlying COPD but lungs appear stable and clear with no acute findings. Heart, khris and mediastinal structures are stable & unremarkable. bus monitor leads are in place.Chest wall unremarkable... IMPRESSION ----- Port-A-Cath in place entering from left & in satisfactory position. Underlying COPD./Emphysema Lungs appear clear with no acute findings. No pneumothorax.
[2017-03-25 21:01] VITALS: BP 137/70
== END 2017-03-25 10:55 | disposition home or self-care (01) ==
LOC: COP 08:11 → SDC 08:11 → COP 10:55
PROVIDERS: Surgery
PROC: 0JH63WZ Insertion of Totally Implantable Vascular Access Device into Chest Subcutaneous Tissue and Fascia, Percutaneous Approach (ICD-10-PCS; principal; 2017-03-25 08:45)
DX: C20 Malignant neoplasm of rectum (principal); Z45.2 Encounter for adjustment and management of vascular access device
CPT/HCPCS: C1788; J1642; J2405

== ENCOUNTER 2017-03-26 08:25 | Outpatient (CLI) | payer OTHER, MEDICARE ==
[2017-03-26] VITALS (14 sets, daily range): BP systolic 148–163; BP diastolic 65–87
[~2017-03-26] VITALS: Ht 154.9 cm; Wt 48.1 kg
[2017-03-26 09:06] LABS: HEMOGLOBIN 12.5 g/dL (12.2-16.2); LYMPH # 0.8 K/mm3 (0.7-4.5); LYMPH % 6.2 % (10-50.0)
[2017-03-26 09:15] LABS: BUN 11 mg/dL (7-18)
[2017-03-26 09:16] LABS: GFR (ESTIMATED) 72 ML/MIN (59-)
[2017-03-26 09:16] LABS: URINE BILIRUBIN - DIPSTICK NEGATIVE (NEG); URINE BLOOD TRACE-LYSED (NEG)
[2017-03-26 09:56] LABS: NEUTROPHILS 85 % (42-76)
== END 2017-03-26 16:00 | disposition home or self-care (01) ==
LOC: COP 08:25
PROVIDERS: Internal Medicine
DX: C20 Malignant neoplasm of rectum (principal)
CPT/HCPCS: J1642; J9035; J9263; Q0166